=== PATIENT | male | born 1960 | race Caucasian/White ===

== ENCOUNTER 2018-07-13 14:53 | Emergency (ER) | END 2018-07-13 20:49 | disposition home or self-care (01) ==

== ENCOUNTER 2019-04-20 10:31 | Emergency (ER) | payer OTHER ==
[~2019-04-20] VITALS: Ht 162.6 cm; Wt 72.7 kg
[~2019-04-20 10:31] MED LIST: AMLO5TAB4 PO; ASPI-817 PO; CHLO25CA9 PO; CHOL200056 PO; ESCI5TAB10 PO; LEVE10006 PO; LISI1TAB8 PO; TOPI50TA13 PO
[2019-04-20 10:40] VITALS: Ht 162.6 cm; Wt 72.7 kg
[2019-04-20] MEDS ORDERED: SOD CHLORIDE 0.9% 1,000 ML IV STA (10:53)
[2019-04-20] MEDS ORDERED: DIPHTH/TET/ACEL PERTUSS (ADULT) 0.5 ML VIAL IM* ONE (11:00)
[2019-04-20] MEDS ORDERED: LORAZEPAM 2 MG INJ IV ONE (11:00)
[2019-04-20 12:59] VITALS: BP 119/73; PULSE 84; RESP 18
--- NOTE | 2019-04-20 15:01 | ERD ---
ER Documentation Chief Complaint Chief Complaint EXCESSIVE ETOH AND FELL LAST NIGHT. LAC ON LEFT EYEBROW. DIZZINESS TODAY HPI Patient is a 58-year-old male with hypertension who presents with trip and fall. The patient was brought in by ambulance. He drank alcohol last night. He had a trip and fall and hit the left side of his head. He complains of a headache and has an abrasion to the left forehead. Upon review of old medical records this patient had one previous visit to the ER in 2018. ROS All systems reviewed and are negative except as per history of present illness. Medications Home Meds Discontinued Reported Medications Cholecalciferol (Vitamin D3) (Vitamin D-3) 2,000 Unit Tablet, 2000 UNIT PO DAILY, TAB 07/13/18 Topiramate* (Topiramate*) 50 Mg Tablet, 50 MG PO BID, TAB 07/13/18 Lisinopril/Hydrochlorothiazide (Lisinopril-Hctz 20-25 mg Tab) 1 Each Tablet, 1 EACH PO DAILY, TAB 07/13/18 Levetiracetam* (Levetiracetam*) 1,000 Mg Tablet, 1500 MG PO BID, TAB 07/13/18 Escitalopram Oxalate* (Escitalopram Oxalate*) 5 Mg Tablet, 5 MG PO DAILY, #30 TAB 07/13/18 Aspirin* (Aspirin* EC) 81 Mg Tablet.dr, 81 MG PO DAILY, TAB 07/13/18 Amlodipine Besylate* (Norvasc*) 5 Mg Tablet, 5 MG PO DAILY, TAB 07/13/18 Discontinued Scripts Chlordiazepoxide* (Chlordiazepoxide*) 25 Mg Capsule, 25 MG PO Q8, #18 CAP Colma 3 pastillas audrey 1,2, y 3 empezando manana Colma 2 pastillas audrey 4, 5 y 6 Colma 1 pastilla por veronika ordonez. Prov:JOHN ELLINGTON DO 07/13/18 Allergies Allergies: Coded Allergies: No Known Allergy (Unverified , 04/20/19) PMhx/Soc Hx Neurological Disorder: Yes (adult seizure disorder) Hx Cardiac Disorders: Yes (htn) Hx Miscellaneous Medical Probl: No Hx Alcohol Use: Yes Hx Substance Use: No Hx Tobacco Use: No Smoking Status: Never smoker FmHx Family History: No diabetes Physical Exam Vitals Vital Signs Date Temp Pulse Resp B/P (MAP) Pulse Ox O2 O2 Flow FiO2 Time Delivery Rate 04/20/19 98.7 84 18 119/73 99 Room Air 12:59 (88) 04/20/19 98.7 101 18 170/95 95 10:40 (120) Physical Exam Const: Mild distress Head: Abrasion to left forehead Eyes: Normal Conjunctiva ENT: Normal External Ears, Nose and Mouth. Neck: Full range of motion. No meningismus. Resp: Clear to auscultation bilaterally Cardio: Regular rate and rhythm, no murmurs Abd: Soft, non tender, non distended. Normal bowel sounds Skin: No petechiae or rashes Back: No midline or flank tenderness Ext: No cyanosis, or edema Neur: Awake and alert Psych: Normal Mood and Affect Result Diagram: 04/20/19 1100 04/20/19 1100 Results 24 hrs Laboratory Tests Test 04/20/19 11:00 White Blood Count 7.2 10^3/ul Red Blood Count 4.65 10^6/ul Hemoglobin 14.9 g/dl Hematocrit 44.0 % Mean Corpuscular Volume 94.6 fl Mean Corpuscular Hemoglobin 32.0 pg Mean Corpuscular Hemoglobin Concent 33.9 g/dl Red Cell Distribution Width 14.3 % Platelet Count 238 10^3/UL Mean Platelet Volume 10.5 fl Immature Granulocytes % 0.600 % Neutrophils % 74.8 % Lymphocytes % 14.9 % Monocytes % 7.6 % Eosinophils % 1.5 % Basophils % 0.6 % Nucleated Red Blood Cells % 0.0 /100WBC Immature Granulocytes # 0.040 10^3/ul Neutrophils # 5.4 10^3/ul Lymphocytes # 1.1 10^3/ul Monocytes # 0.6 10^3/ul Eosinophils # 0.1 10^3/ul Basophils # 0.0 10^3/ul Nucleated Red Blood Cells # 0.0 10^3/ul Prothrombin Time 12.1 Sec Prothrombin Time Ratio 0.9 INR International Normalized Ratio 0.89 Activated Partial Thromboplast Time 28.6 Sec Sodium Level 148 mmol/L Potassium Level 3.8 mmol/L Chloride Level 111 mmol/L Carbon Dioxide Level 23 mmol/L Anion Gap 14 Blood Urea Nitrogen 10 mg/dl Creatinine 0.69 mg/dl Est Glomerular Filtrat Rate mL/min > 60 mL/min Glucose Level 98 mg/dl Calcium Level 8.9 mg/dl Ethyl Alcohol Level 75.0 mg/dl Current Medications Medications Dose Sig/Santana Start Time Status Last (Trade) Ordered Route PRN Stop Time Admin Dose Reason Admin Sodium 1,000 ml @ Q1H STAT 04/20/19 DC 04/20/19 Chloride 1,000 mls/hr IV 10:53 04/20/19 11:06 11:52 Lorazepam 1 mg ONCE ONCE 04/20/19 DC 04/20/19 (Ativan) IV 11:00 04/20/19 11:06 11:01 Diphtheria/ 0.5 ml ONCE ONCE 04/20/19 DC 04/20/19 Tetanus/Acell IM* 11:00 04/20/19 11:07 Pertussis 11:01 (Adacel) Procedures/MDM CT brain read by radiology. CT cervical spine read by radiology. Patient is a 58-year-old male with hypertension who presents after a fall. He fell and hit his head last night after drinking alcohol. CT head and cervical spine were negative for fracture or bleeding. Patient was given Tdap for the abrasion. The patient will be discharged but will need to follow-up closely with his primary doctor within 24 to 48 hours. The patient can return for any worsening symptoms. I doubt serious traumatic injury at this time. Departure Diagnosis: Primary Impression: Concussion Encounter type: initial encounter Loss of consciousness presence/duration: without LOC Qualified Codes: S06.0X0A - Concussion without loss of co nsciousness, initial encounter Additional Impressions: Alcohol intoxication Complication of substance-induced condition: uncomplicated Qualified Codes: F10.920 - Alcohol use, unspecified with intoxication, uncomplicated Dizziness Abrasion Fall Encounter type: initial encounter Qualified Codes: W19.XXXA - Unspecified fall, initial encounter Condition: Fair Patient Instructions: Concussion, Abrasion [facility] Usted se iverson hecho un examen mdico de control que le indica que no est en guido condicin que requiera tratamiento urgente en el Departamento de Emergencia. Un estudio ms profundo y el tratamiento de hernandez condicin pueden esperar sin ningn riesgo hasta que usted sea atendida/o en el consultorio de hernandez mdico o guido clnica. Es responsabilidad suya arreglar guido ana paula para el seguimiento del jack. MANEJO DE CONDICIONES NO URGENTES EN EL FUTURO 1) Si usted tiene un mdico de atencin primaria: Usted debera llamar a hernandez mdico de atencin primaria antes de venir al departamento de emergencia. Despus de las horas de consultorio, hernandez doctor o hernandez asociado/a est disponible por telfono. El mdico o enfermero de jamila en el servicio telefnico puede asesorarle por mansi medio para atender el problema, o jack contrario se puede programar guido ana paula. 2) Si usted no tiene un mdico de atencin primaria: Llame al mdico o clnica de referencia que aparece abajo suzanne las horas de consultorio para hacer guido ana paula para que le vean. CLINICAS: [place] [address] [phone] [facility] [facility] [phone] [facility] [facility] [phone] [facility]. [place] [address] [phone] [facility] [place] [id number] [phone] [facility]. [phone] Additional Instructions: Llame al doctor MAANA y torsten guido ANA PAULA PARA DENTRO DE 1-2 ORDONEZ.Dgale a la secretaria que nosotros le instruimos hacer esta ana paula.Avise o llame si hernandez condicin se empeora antes de la ana paula. Regresa aqui si peor o no mejor. ELOISE BLANK MD Apr 20, 2019 15:01
== END 2019-04-20 13:14 | disposition home or self-care (01) ==
LOC: E/R 10:31
DX: S06.0X0A Concussion without loss of consciousness, initial encounter (principal); F10.920 Alcohol use, unspecified with intoxication, uncomplicated; I10 Essential (primary) hypertension; S00.81XA Abrasion of other part of head, initial encounter; W01.10XA Fall on same level from slipping, tripping and stumbling with subsequent striking against unspecified object, initial encounter; Y92.9 Unspecified place or not applicable; Z23 Encounter for immunization; Z79.82 Long term (current) use of aspirin
CPT/HCPCS: 36415; 70450; 72125; 80048; 80307; 85025; 85610; 85730; 90471; 90715; 96374; J2060; J7030; Z7502; Z7610

== ENCOUNTER 2019-06-02 20:31 | Emergency (ER) | payer MEDICAID, OTHER ==
[~2019-06-02] VITALS: Ht 167.6 cm; Wt 61.5 kg
[2019-06-02 20:33] VITALS: Ht 167.6 cm; Wt 61.5 kg
[2019-06-02] MEDS ORDERED: GABA100C14 PO (21:05)
[2019-06-02] MEDS ORDERED: SENN-120 PO (21:06)
[2019-06-02] MEDS ORDERED: ATOR20TA38 PO (21:06)
[2019-06-02] MEDS ORDERED: LEVE100018 PO (21:06)
[2019-06-02] MEDS ORDERED: DOCU-144 PO (21:07)
[2019-06-02] MEDS ORDERED: TOPI50TA13 PO (21:08)
[2019-06-02] MEDS ORDERED: LORAZEPAM 2 MG INJ IV ONE (22:00)
--- NOTE | 2019-06-03 00:26 | ERD ---
ER Documentation Chief Complaint Chief Complaint WEAKNESS, SHAKING X'S 1 DAY HPI Is a 59-year-old male comes in with shakiness and anxiety and generalized weakness over the past 3 days. Denies fevers chills nausea vomiting. Denies suicidal homicidal ideation. Denies auditory or visual hallucinations. Denies any focal neurological complaints. Denies any other current issues. ROS All systems reviewed and are negative except as per history of present illness. Medications Home Meds Reported Medications Topiramate* (Topiramate*) 50 Mg Tablet, 50 MG PO BID, TAB 06/02/19 Docusate Sodium* (Colace*) 100 Mg Capsule, 100 MG PO DAILY, #30 CAP 06/02/19 Atorvastatin Calcium* (Atorvastatin Calcium*) 20 Mg Tablet, 20 MG PO QHS, #30 TAB 06/02/19 Sennosides* (Senna Lax*) 8.6 Mg Tablet, 1 TAB PO DAILY, TAB 06/02/19 Levetiracetam* (Keppra*) 1,000 Mg Tablet, 1000 MG PO BID, TAB 06/02/19 Gabapentin* (Gabapentin*) 100 Mg Capsule, 100 MG PO DAILY, #90 CAP 06/02/19 Allergies Allergies: Coded Allergies: No Known Allergy (Unverified , 06/02/19) PMhx/Soc Medical and Surgical Hx: pt denies Surgical Hx History of Surgery: No Anesthesia Reaction: No Hx Neurological Disorder: Yes (adult seizure disorder) Hx Respiratory Disorders: No Hx Cardiac Disorders: Yes (htn) Hx Psychiatric Problems: No Hx Miscellaneous Medical Probl: No Hx Alcohol Use: Yes (OCCASSIONAL) Hx Substance Use: No Hx Tobacco Use: No Smoking Status: Never smoker Physical Exam Vitals Vital Signs Date Temp Pulse Resp B/P (MAP) Pulse Ox O2 O2 Flow FiO2 Time Delivery Rate 06/02/19 51 17 121/80 99 Room Air 23:17 (94) 06/02/19 98.0 58 18 136/76 99 Room Air 22:07 (96) 06/02/19 98.2 79 18 195/94 99 20:33 (127) Physical Exam Const: No acute distress Head: Atraumatic Eyes: Normal Conjunctiva ENT: Normal External Ears, Nose and Mouth. Neck: Full range of motion. No meningismus. Resp: Clear to auscultation bilaterally Cardio: Regular rate and rhythm, no murmurs Abd: Soft, non tender, non distended. Normal bowel sounds Skin: No petechiae or rashes Back: No midline or flank tenderness Ext: No cyanosis, or edema Neur: Awake and alert Psych: Normal Mood and Affect Result Diagram: 06/02/19210006/02/192100 Results 24 hrs Laboratory Tests Test 06/02/19 21:01 06/02/19 21:45 White Blood Count 5.0 10^3/ul Red Blood Count 4.25 10^6/ul Hemoglobin 13.9 g/dl Hematocrit 41.1 % Mean Corpuscular Volume 96.7 fl Mean Corpuscular Hemoglobin 32.7 pg Mean Corpuscular Hemoglobin Concent 33.8 g/dl Red Cell Distribution Width 14.1 % Platelet Count 245 10^3/UL Mean Platelet Volume 10.1 fl Immature Granulocytes % 0.400 % Neutrophils % % Lymphocytes % % Monocytes % % Eosinophils % % Basophils % % Nucleated Red Blood Cells % 0.0 /100WBC Immature Granulocytes # 0.020 10^3/ul Neutrophils # 10^3/ul Lymphocytes # 10^3/ul Monocytes # 10^3/ul Eosinophils # 10^3/ul Basophils # 10^3/ul Nucleated Red Blood Cells # 10^3/ul Sodium Level 142 mmol/L Potassium Level 3.6 mmol/L Chloride Level 109 mmol/L Carbon Dioxide Level 22 mmol/L Anion Gap 11 Blood Urea Nitrogen 18 mg/dl Creatinine 0.85 mg/dl Est Glomerular Filtrat Rate mL/min > 60 mL/min Glucose Level 116 mg/dl Calcium Level 9.3 mg/dl Total Bilirubin 0.6 mg/dl Direct Bilirubin 0.00 mg/dl Indirect Bilirubin 0.6 mg/dl Aspartate Amino Transf (AST/SGOT) 39 IU/L Alanine Aminotransferase (ALT/SGPT) 41 IU/L Alkaline Phosphatase 52 IU/L Troponin I < 0.012 ng/ml Total Protein 8.4 g/dl Albumin 4.4 g/dl Globulin 4.00 g/dl Albumin/Globulin Ratio 1.10 Lipase 151 U/L Urine Color YELLOW Urine Clarity CLEAR Urine pH 5.0 Urine Specific Pearl 1.023 Urine Ketones NEGATIVE mg/dL Urine Nitrite NEGATIVE mg/dL Urine Bilirubin NEGATIVE mg/dL Urine Urobilinogen NEGATIVE mg/dL Urine Leukocyte Esterase NEGATIVE Shiva/ul Urine Hemoglobin NEGATIVE mg/dL Urine Glucose NEGATIVE mg/dL Urine Total Protein NEGATIVE mg/dl Current Medications Medications Dose Sig/Santana Start Time Status Last (Trade) Ordered Route PRN Stop Time Admin Dose Reason Admin Lorazepam 1 mg ONCE ONCE 06/02/19 DC 06/02/19 (Ativan) IV 22:00 22:03 06/02/19 22:01 Procedures/MDM EKG: Rate/Rhythm: [Normal Sinus Rhythm] QRS, ST, T-waves: [No changes consistent w/ acute ischemia] Impression: [No evidence of ischemia or arrhythmia] Chest X-ray 1V Interpreted by me: Soft Tissue: No acute abn ormalities Bones: No acute abnormalities Mediastinum/Cardiac Silhouette/Lungs: [No acute abnormalities] Medical decision making: Patient's neurologic symptoms have stabilized while they have been evaluated in the department and are appropriate for outpatient work up. No e/o meningitis, intracranial bleed, seizure, stroke. Departure Diagnosis: Primary Impression: Acute weakness Condition: Stable Patient Instructions: Weakness, Unk Cause FEDERICO MUHAMMAD Jun 03, 2019 00:26
[2019-06-03 02:33] VITALS: BP 117/77; PULSE 64; RESP 16
== END 2019-06-03 02:35 | disposition home or self-care (01) ==
LOC: E/R 20:31
DX: R53.1 Weakness (principal); I10 Essential (primary) hypertension; R51 Headache
CPT/HCPCS: 36415; 70450; 71045; 80053; 81003; 83690; 84484; 85025; 93005; 96374; J2060; Z7502

== ENCOUNTER 2019-06-15 19:03 | Emergency (ER) | payer MEDICAID, OTHER ==
[~2019-06-15] VITALS: Ht 162.6 cm; Wt 62.6 kg
[~2019-06-15 19:03] MED LIST changes: -AMLO5TAB4 PO; -ASPI-817 PO; +ATOR20TA38 PO; -CHLO25CA9 PO; -CHOL200056 PO; +DOCU-144 PO; -ESCI5TAB10 PO; +GABA100C14 PO; +LEVE100018 PO; -LEVE10006 PO; -LISI1TAB8 PO; +SENN-120 PO
[2019-06-15 19:09] VITALS: Ht 162.6 cm; Wt 62.6 kg
[2019-06-15] MEDS ORDERED: LORAZEPAM 2 MG INJ IV STA (20:45)
[2019-06-15] MEDS ORDERED: morphine 4 MG/ML VIAL IV STA (20:45)
[2019-06-15] MEDS ORDERED: ONDANSETRON 4 MG INJ IV STA (20:45)
[2019-06-15] MEDS ORDERED: LEVETIRACETAM 1000 MG (PMX) 100 ML IVPB STA (20:45)
--- NOTE | 2019-06-15 21:57 | ERD ---
ER Documentation Chief Complaint Chief Complaint pt stated having ABARCA, weakness and having seizure like movements x1 wk HPI This is a 59-year-old male who is here for the fear of him having another seizure. The patient was seen here earlier last week and he was given Keppra but he says he has not been taking it. He says he has at home but he just does not explain why is not taking it. Says he feels nervous and that he has a mild dull frontal headache. He has no focal neurological complaints, he is a bit anxious he states. He has not had a seizure but he feels like he is going to have one. He says before he has seizures typically he will have some twitching of his left cheek or tongue and then will proceed to have a seizure. He says he feels like his cheek starting to twitch a little bit but not his tongue. ROS All systems reviewed and are negative except as per history of present illness. Medications Home Meds Reported Medications Topiramate* (Topiramate*) 50 Mg Tablet, 50 MG PO BID, TAB 06/02/19 Docusate Sodium* (Colace*) 100 Mg Capsule, 100 MG PO DAILY, #30 CAP 06/02/19 Atorvastatin Calcium* (Atorvastatin Calcium*) 20 Mg Tablet, 20 MG PO QHS, #30 TAB 06/02/19 Sennosides* (Senna Lax*) 8.6 Mg Tablet, 1 TAB PO DAILY, TAB 06/02/19 Levetiracetam* (Keppra*) 1,000 Mg Tablet, 1000 MG PO BID, TAB 06/02/19 Gabapentin* (Gabapentin*) 100 Mg Capsule, 100 MG PO DAILY, #90 CAP 06/02/19 Allergies Allergies: Coded Allergies: No Known Allergy (Unverified , 06/02/19) PMhx/Soc History of Surgery: No Anesthesia Reaction: No Hx Neurological Disorder: Yes (adult seizure disorder) Hx Respiratory Disorders: No Hx Cardiac Disorders: Yes (htn) Hx Psychiatric Problems: No Hx Miscellaneous Medical Probl: No Hx Alcohol Use: Yes (OCCASSIONAL) Hx Substance Use: No Hx Tobacco Use: No Smoking Status: Never smoker FmHx Family History: No coronary disease Physical Exam Vitals Vital Signs Date Temp Pulse Resp B/P (MAP) Pulse Ox O2 O2 Flow FiO2 Time Delivery Rate 06/15/19 98.6 96 18 194/102 96 19:09 (132) Physical Exam Const: Well-developed, well-nourished Head: Atraumatic, normocephalic Eyes: Normal Conjunctiva, PERRLA, EOMI, normal sclera, no nystagmus ENT: Normal External Ears, Nose and Mouth, moist mucus membranes. Neck: Full range of motion. No meningismus, no lymphadenopathy. Resp: Clear to auscultation bilaterally, no wheezing, rhonchi, rales Cardio: Regular rate and rhythm, no murmurs, S1 S2 present Abd: Soft, non tender x 4, non distended. Normal bowel sounds, no guarding or rebound, no pulsitile abdominal masses or bruits Skin: No petechiae or rashes, no ecchymosis , no maculopapular rash Back: No midline or flank tenderness Ext: No cyanosis, or edema, FROM x 4, normal inspection, neurovascularly intact x 4 Neur: Awake and alert, STR 5/5 x 4, sensation intact x 4, no focal findings, cerebellum intact Psych: Anxious Result Diagram: 06/15/19201906/15/192019 Results 24 hrs Laboratory Tests Test 06/15/19 20:20 06/15/19 21:00 White Blood Count 6.8 10^3/ul Red Blood Count 4.21 10^6/ul Hemoglobin 13.6 g/dl Hematocrit 40.7 % Mean Corpuscular Volume 96.7 fl Mean Corpuscular Hemoglobin 32.3 pg Mean Corpuscular Hemoglobin Concent 33.4 g/dl Red Cell Distribution Width 14.4 % Platelet Count 251 10^3/UL Mean Platelet Volume 10.3 fl Immature Granulocytes % 0.100 % Neutrophils % % Segmented Neutrophils % (Manual) 65 % Band Neutrophils % (Manual) 1 % Lymphocytes % % Lymphocytes % (Manual) 20 % Monocytes % % Monocytes % (Manual) 8 % Eosinophils % % Eosinophils % (Manual) 4 % Basophils % % Basophils % (Manual) 1 % Metamyelocytes % (manual) 1 % Nucleated Red Blood Cells % 0.0 /100WBC Immature Granulocytes # 0.010 10^3/ul Neutrophils # 10^3/ul Neutrophils # (Manual) 4.4 10^3/ul Band Neutrophils # 0.0 10^3/ul Lymphocytes (Manual) 1.3 10^3/ul Lymphocytes # 10^3/ul Monocytes # 10^3/ul Monocytes # (Manual) 0.5 10^3/ul Eosinophils # 10^3/ul Basophils # 10^3/ul Basophils # (Manual) 0.0 10^3/ul Metamyelocytes # 0.0 10^3/ul Nucleated Red Blood Cells # 10^3/ul Platelet Estimate NORMAL Polychromasia 2+ Sodium Level 140 mmol/L Potassium Level 4.0 mmol/L Chloride Level 107 mmol/L Carbon Dioxide Level 24 mmol/L Anion Gap 9 Blood Urea Nitrogen 18 mg/dl Creatinine 1.25 mg/dl Est Glomerular Filtrat Rate mL/min 59 mL/min Glucose Level 94 mg/dl Calcium Level 8.9 mg/dl Total Bilirubin 0.6 mg/dl Direct Bilirubin 0.00 mg/dl Indirect Bilirubin 0.6 mg/dl Aspartate Amino Transf (AST/SGOT) 53 IU/L Alanine Aminotransferase (ALT/SGPT) 35 IU/L Alkaline Phosphatase 54 IU/L Total Protein 8.1 g/dl Albumin 4.3 g/dl Globulin 3.80 g/dl Albumin/Globulin Ratio 1.13 Bedside Glucose 95 mg/dL Current Medications Medications Dose Sig/Santana Start Time Status Last (Trade) Ordered Route PRN Stop Time Admin Dose Reason Admin Lorazepam 1 mg ONCE STAT 06/15/19 DC 06/15/19 (Ativan) IV 20:45 20:55 06/15/19 20:48 100 ml @ ONCE STAT 06/15/19 DC 06/15/19 Levetiracetam 400 mls/hr IVPB 20:45 21:05 06/15/19 20:59 Ondansetron 4 mg ONCE STAT 06/15/19 DC 06/15/19 HCl (Zofran IV 20:45 20:55 Inj) 06/15/19 20:48 Morphine 4 mg ONCE STAT 06/15/19 DC 06/15/19 Sulfate IV 20:45 20:55 (morphine) 06/15/19 20:48 Procedures/MDM [place] [id number] Radiology Main Line: [phone] DIAGNOSTIC IMAGING REPORT Patient: LELAND CLIFTON : 1960 Age: 59 Sex: M MR #: [id number] DOS: 06/15/192044 Ordering MD: PORSCHE MYLES DO Location: E/R Room/Bed: PROCEDURE: CT Brain without contrast. CLINICAL INDICATION: Seizure. TECHNIQUE: A CT of the brain without contrast was performed utilizing axial sections from the skull base through the vertex. The patient was scanned without intravenous contrast enhancement. Sagittal and coronal reformatted images were obtained using the data from the axial images. Total exam DLP is 634.23 mGy-cm. CTDIvol is 38.62 mGy. One or more of the following dose reduction techniques were used: Automated exposure control, adjustment of the mA and/or kV according to patient size, use of iterative reconstruction technique. DICOM images are available. COMPARISON: CT scan of the brain dated 06/02/2019. 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 The vivas and white matter differentiation is otherwise normal. There is mild enlargement of the ventricles and subarachnoid spaces consistent with atrophy. There is mild decreased attenuation of the periventricular white matter co nsistent with microangiopathic ischemic change. There is no intracranial hemorrhage or space-occupying lesion. There are vascular calcifications consistent with atherosclerosis. There is no skull fracture or lytic lesion. IMPRESSION: 1. Mild atrophy. 2. Mild microangiopathic ischemic change. 3. Atherosclerosis. 4. No intracranial hemorrhage. 5. 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 6. Otherwise unremarkable noncontrast CT scan of the brain. RPTAT: QQ .Willie Roach MD, MD Date Time Electronically viewed and signed by .Willie Roach MD, on 06/15/2019 21:45 .R/ CC: PORSCHE MYLES DO [phone] Patient was given IV Keppra here and some Ativan and some pain medication. He currently feels much better more relaxed. I will give him another prescription for Keppra if he does not have the current one just in case. However I feel that his symptoms are mostly anxiety related to the fear of having no seizure. Discussed with him that he needs to take his medication so that he will have a severe to begin with Departure Diagnosis: Primary Impression: Headache Headache type: unspecified Headache chronicity pattern: unspecified pattern Intractability: not intractable Qualified Codes: R51 - Headache Condition: Stable PORSCHE MYLES DO Jun 15, 2019 21:57
[2019-06-15] MEDS ORDERED: LORA-441 PO (22:07)
[2019-06-15] MEDS ORDERED: LEVE750T70 PO (22:07)
[2019-06-15 23:32] VITALS: BP 121/86; PULSE 65; RESP 20
== END 2019-06-15 23:32 | disposition home or self-care (01) ==
LOC: E/R 19:03
DX: R51 Headache (principal); I10 Essential (primary) hypertension
CPT/HCPCS: 36415; 70450; 80053; 82962; 85025; 96374; 96375; J1953; J2060; J2270; J2405; Z7502

== ENCOUNTER 2019-06-22 05:30 | Emergency (ER) | payer MEDICAID, OTHER ==
[~2019-06-22] VITALS: Ht 170.2 cm; Wt 61.9 kg
[~2019-06-22 05:30] MED LIST changes: +LEVE750T70 PO; +LORA-441 PO
[2019-06-22 05:41] VITALS: Ht 170.2 cm; Wt 61.9 kg
[2019-06-22] MEDS ORDERED: LORAZEPAM 1 MG TAB PO ONE ×2 (06:30→07:30)
--- NOTE | 2019-06-22 07:09 | ERD ---
ER Documentation Chief Complaint Chief Complaint ANXIETY, INTERMITTENT UPPER LIMB SHAKING. ABD PAIN. HPI This is a 59-year-old man with history of anxiety, alcoholism with alcohol withdrawal seizures, and hypertension presenting with complaints of suspecting he is about to have an alcohol withdrawal seizure. He has had multiple seizures in the past and was prescribed Keppra but he states he has not been taking those medications. He does not provide a reason for not using his medications as prescribed. Patient denies suicidal homicidal ideation, no chest pain or sh ortness of breath, no complaints of fevers or chills, no vomiting or diarrhea. ROS All systems reviewed and are negative except as per history of present illness. Medications Home Meds Active Scripts Lorazepam* (Ativan*) 0.5 Mg Tablet, 0.5 MG PO Q8H PRN for ANXIETY, #10 TAB Prov:PORSCHE MYLES. DO 06/15/19 Levetiracetam* (Keppra*) 750 Mg Tablet, 750 MG PO BID, #60 TAB Prov:SHAMEKAAPOSTOLOS A. DO 06/15/19 Reported Medications Topiramate* (Topiramate*) 50 Mg Tablet, 50 MG PO BID, TAB 06/02/19 Docusate Sodium* (Colace*) 100 Mg Capsule, 100 MG PO DAILY, #30 CAP 06/02/19 Atorvastatin Calcium* (Atorvastatin Calcium*) 20 Mg Tablet, 20 MG PO QHS, #30 TAB 06/02/19 Sennosides* (Senna Lax*) 8.6 Mg Tablet, 1 TAB PO DAILY, TAB 06/02/19 Levetiracetam* (Keppra*) 1,000 Mg Tablet, 1000 MG PO BID, TAB 06/02/19 Gabapentin* (Gabapentin*) 100 Mg Capsule, 100 MG PO DAILY, #90 CAP 06/02/19 Allergies Allergies: Coded Allergies: No Known Allergy (Unverified , 06/22/19) PMhx/Soc Seizure disorder, alcohol abuse, history of anxiety Medical and Surgical Hx: pt denies Surgical Hx History of Surgery: No Anesthesia Reaction: No Hx Neurological Disorder: Yes (adult seizure disorder) Hx Respiratory Disorders: No Hx Cardiac Disorders: Yes (htn) Hx Psychiatric Problems: No Hx Miscellaneous Medical Probl: No Hx Alcohol Use: Yes (OCCASSIONAL) Hx Substance Use: No Hx Tobacco Use: No Smoking Status: Never smoker FmHx Family History: No diabetes Physical Exam Vitals Vital Signs Date Temp Pulse Resp B/P (MAP) Pulse Ox O2 O2 Flow FiO2 Time Delivery Rate 06/22/19 97.9 78 17 154/84 100 Room Air 08:26 (107) 06/22/19 61 18 154/84 96 Room Air 08:00 (107) 06/22/19 81 18 195/95 98 Room Air 07:00 (128) 06/22/19 98.4 83 18 223/109 97 Room Air 06:55 (147) 06/22/19 98.7 97 16 195/112 97 05:41 (139) Physical Exam Const: Anxious, well-developed well-nourished, afebrile HEENT: No jaundice or icterus, cervical spine without deformity or tenderness to touch Resp: Clear to auscultation bilaterally Cardio: Regular rate and rhythm, no murmurs Abd: Soft, non tender, non distended. Skin: No petechiae or rashes, no lacerations or hematomas Neur: Awake and alert x3, no focal deficits or facial asymmetry, gait stable Psych: Appears anxious Results 24 hrs Laboratory Tests Test 06/22/19 06:52 06/22/19 07:06 Urine Opiates Screen NEGATIVE Urine Barbiturates NEGATIVE Urine Amphetamines Screen NEGATIVE Urine Benzodiazepines Screen NEGATIVE Urine Cocaine Screen NEGATIVE Urine Cannabinoids NEGATIVE Ethyl Alcohol Level < 10.0 mg/dl Current Medications Medications Dose Sig/[place] Start Time Status Last (Trade) Ordered Route PRN Stop Time Admin Dose Reason Admin Lorazepam 1 mg ONCE ONCE 06/22/19 DC (Ativan) PO 06:30 06/22/19 06:35 Lorazepam 1 mg ONCE ONCE 06/22/19 DC 06/22/19 (Ativan) PO 07:30 06/22/19 07:24 07:31 Procedures/MDM Patient was placed on trackmobile operator rhythm strip revealed a sinus rhythm at about 60 bpm. Patient was afebrile. I administered lorazepam 1 mg p.o. for anxiety. EKG performed, read by me revealed a normal sinus rhythm at 61 bpm, normal axis, narrow QRS complex, no concerning ST elevations or depressions noted Patient's blood pressure improved and vital signs are normal at this time, he feels much better and looks well will be discharged to follow-up with PMD. Differential diagnoses considered, included but not limited to acute coronary syndrome, pulmonary embolism, aortic dissection, abdominal aortic aneurysm, sepsis, stroke, meningitis, encephalitis, pneumonia, appendicitis, cholecystitis, bowel obstruction, pyelonephritis, nephrolithiasis, cystitis, as well as metabolic, hematologic, and electrolyte abnormalities. As well as abscess, cellulitis, fractures, and dislocations. Patient feels much better at this time, and vital signs are normal, symptoms have improved. I did give strict instructions to return to the ED if symptoms continue or worsen, patient will otherwise follow-up with primary care physi roderick. Patient understood instructions and agreed to plan. Disclaimer: Inadvertent spelling and grammatical errors are likely due to EHR/dictation software use and do not reflect on the overall quality of patient care. Also, please note that the electronic time recorded on this note does not necessarily reflect the actual time of the patient encounter. Departure Diagnosis: Primary Impression: Anxiety disorder Anxiety disorder type: generalized anxiety disorder Qualified Codes: F41.1 - Generalized anxiety disorder Additional Impressions: Alcohol abuse Alcohol withdrawal seizure Complication of substance-induced condition: uncomplicated Qualified Codes: F10.230 - Alcohol dependence with withdrawal, uncomplicated Noncompliance with medication regimen Condition: Stable Patient Instructions: Alcohol Withdrawal, Seizure, Recurrent [Adult], Alcohol Abuse TAVO ABEL MD Jun 22, 2019 07:09
[2019-06-22 08:26] VITALS: BP 154/84; PULSE 78; RESP 17
== END 2019-06-22 08:33 | disposition home or self-care (01) ==
LOC: FTE 05:30 → E/R 08:33
DX: F41.1 Generalized anxiety disorder (principal); F10.230 Alcohol dependence with withdrawal, uncomplicated; I10 Essential (primary) hypertension; Z91.14 Patient's other noncompliance with medication regimen
CPT/HCPCS: 80307; 93005

== ENCOUNTER 2019-07-19 05:59 | Emergency (ER) | payer OTHER ==
[~2019-07-19] VITALS: Ht 167.6 cm; Wt 60.9 kg
[2019-07-19 06:03] VITALS: Ht 167.6 cm; Wt 60.9 kg
[2019-07-19] MEDS ORDERED: SOD CHLORIDE 0.9% 1,000 ML IV STA (06:36)
[2019-07-19] MEDS ORDERED: LORAZEPAM 2 MG INJ IV ONE (07:00)
[2019-07-19 14:18] VITALS: BP 148/77; PULSE 59; RESP 15
== END 2019-07-19 14:18 | disposition home or self-care (01) ==
LOC: E/R 05:59
DX: F10.230 Alcohol dependence with withdrawal, uncomplicated (principal); I10 Essential (primary) hypertension; R42 Dizziness and giddiness
CPT/HCPCS: 36415; 70450; 80048; 85025; 85610; 85730; 96374; 99285; J2060; J7030